=== PATIENT | female | born 1975 | race Hispanic/Latino ===

== ENCOUNTER 2018-11-17 19:14 | Emergency (ER) | payer BC, MEDICAID ==
[2018-11-17 20:08] LABS: #Basophils 0.1 thou/uL (0.0-0.2); #Eosinphils 0.1 thou/uL (0.0-0.7); #Lymphocytes 2.3 thou/uL (1.20-3.40); #Monocytes 0.7 thou/uL (0.11-0.59); #Neutrophils 3.9 thou/uL (1.40-6.50); %Basophils 0.8 % (0.0-1.0); %Eosinophils 1.7 % (0.0-10.0); %Lymphocytes 32.5 % (21.0-51.0); %Monocytes 9.9 % (0.0-10.0); %Neutrophils 55.1 % (42.0-75.0); Mean Corpuscular HGB CONC 32.8 g/dL (32.0-36.0); Mean Corpuscular Hemoglobin 31.2 pg (27.0-31.0); Mean Platelet Volume 8.3 fL (7.4-10.4); Platelet Count 241 thou/uL (130-400); RBC Distribution Width 11.3 % (11.5-14.5); Red Blood Cell (RBC) Count 3.86 mill/uL (4.20-5.40); White Blood Cell (WBC) Count 7.1 thou/uL (4.8-10.8)
--- NOTE | 2018-11-17 23:23 | ULT ---
Pelvic ultrasound 11/17/2018 COMPARISON: 11/15/2018 HISTORY: female with pain TECHNIQUE: Multiplanar grayscale sonographic imaging of the pelvis is obtained with endovaginal imagi ng. FINDINGS: The uterus measures approximately 10.1 x 5.4 x 6.4 cm. There is an intrauterine gestational sac noted. Within the gestational sac is an eccentric round hypoechoic structure measuring 1.3 cm of uncertain etiology. This was also seen on the prior examination and may be related to hemorrhage o r a failed twin gestation. Stable yolk sac noted. There is a single pole with a crown-rump length of 8 mm. No heart tones can be obtained. [place]-rump length of 8 mm correlates with a 6 w [place] 5 day gestation. No free fluid is seen in the pelvis. Left ovary could not be well visualized. Left ovary is estimated at 2.3 x 1.4 x 1.7 cm. Right ovary m easures approximately 2.7 x 1.8 x 1.2 cm. No ovarian/adnexal mass identified on either side. IMPRESSION: No heart tones appreciated. Findings concerning for demise. Please see above discussion.
== END 2018-11-17 23:36 | disposition home or self-care (01) ==
LOC: ERS 19:14
DX: O03.4 Incomplete spontaneous abortion without complication (principal)
CPT/HCPCS: 36415; 76856; 84702; 85025; 86900; 86901; 93976